=== PATIENT | female | born 1990 ===

== ENCOUNTER 2021-10-12 14:27 | Outpatient (CLI) | payer OTHER | END 2021-10-12 16:07 | disposition home or self-care (01) | LOC: PRENATAL 14:27 | PROVIDERS: ATTEND Obstetrics & Gynecology Maternal & Fetal Medicine | DX: O35.0XX1 Maternal care for (suspected) central nervous system malformation in fetus, fetus 1 (principal); O35.3XX1 Maternal care for (suspected) damage to fetus from viral disease in mother, fetus 1; O98.513 Other viral diseases complicating pregnancy, third trimester; O28.1 Abnormal biochemical finding on antenatal screening of mother; O24.313 Unspecified pre-existing diabetes mellitus in pregnancy, third trimester; Z36.89 Encounter for other specified antenatal screening; Z3A.28 28 weeks gestation of pregnancy ==

== ENCOUNTER 2021-11-21 13:38 | Outpatient (CLI) | payer OTHER | END 2021-11-21 14:47 | disposition home or self-care (01) | LOC: PRENATAL 13:38 | PROVIDERS: ATTEND Obstetrics & Gynecology Maternal & Fetal Medicine | DX: O26.849 Uterine size-date discrepancy, unspecified trimester (principal); O24.319 Unspecified pre-existing diabetes mellitus in pregnancy, unspecified trimester; O02.81 Inappropriate change in quantitative human chorionic gonadotropin (hCG) in early pregnancy ==

== ENCOUNTER 2021-12-15 15:08 | Outpatient (CLI) | payer OTHER | END 2021-12-15 16:23 | disposition home or self-care (01) | LOC: PRENATAL 15:08 | PROVIDERS: ATTEND Obstetrics & Gynecology Maternal & Fetal Medicine | DX: O26.849 Uterine size-date discrepancy, unspecified trimester (principal); O28.1 Abnormal biochemical finding on antenatal screening of mother; O24.319 Unspecified pre-existing diabetes mellitus in pregnancy, unspecified trimester ==